=== PATIENT | male | born 1960 | race Caucasian/White ===

== ENCOUNTER 2019-08-01 23:36 | Observation (INO) | payer MEDICARE, MEDICAID ==
[~2019-08-01] VITALS: Ht 167.6 cm; Wt 75.0 kg
[2019-08-01] MEDS ORDERED: pantoprazole 40 MG vial IV ONE (23:45)
[2019-08-01] MEDS ORDERED: normal saline 1000ML IV soln IVB ONE ×2 (23:45→23:55)
[2019-08-01] MEDS ORDERED: tamsulosin 0.4mg capsule PO SCH (23:55)
[2019-08-01] MEDS ORDERED: morphine 4 MG/ML inj SYRINge IV ONE (23:55)
[2019-08-01] MEDS ORDERED: LORazepam 2 mg/ml vial IV ONE (23:55)
[2019-08-02 00:18] LABS: BASOPHILS # (AUTO) 0.1 X10'3 (0-0.2); BASOPHILS % (AUTO) 0.6 % (0-1); EOSINOPHILS % (AUTO) 0.1 % (0-6); HEMATOCRIT 44.2 % (42.0-52.0); HEMOGLOBIN 14.7 g/dl (14.0-17.9); LYMPHOCYTES # (AUTO) 0.7 X10'3 (1.1-4.8); LYMPHOCYTES % (AUTO) 4.7 % (21-51); MEAN CORPUSCULAR HEMOGLOBIN 30.4 PG (27.0-31.0); MEAN CORPUSCULAR HGB CONC 33.3 g/dL (33.0-36.5); MEAN CORPUSCULAR VOLUME 91.2 FL (78-98); MEAN PLATELET VOLUME 7.2 FL (7.4-10.4); MONOCYTES # (AUTO) 0.9 X10'3 (0-0.9); MONOCYTES % (AUTO) 6.2 % (2-12); NEUTROPHILS # (AUTO) 13.5 X10'3 (1.8-7.7); NEUTROPHILS % (AUTO) 88.4 % (42-75); PLATELET COUNT 372 X10'3 (140-440); RED BLOOD COUNT 4.85 X10'6 (4.70-6.10); RED CELL DISTRIBUTION WIDTH 13.7 % (11.5-14.5); WHITE BLOOD COUNT 15.2 X10'3 (4.5-11.0)
[2019-08-02] MEDS: morphine 2 MG/ML inj. syringe IV PRN ×5 (00:24→01:51)
[2019-08-02 00:26] LABS: CLARITY,URINE CLEAR (Clear); COLOR,URINE YELLOW (Yellow); GLUCOSE, URINE NEGATIVE (Neg); KETONES,URINE NEGATIVE (Neg); LEUKOCYTE ESTERASE ,URINE NEGATIVE (Neg); NITRITES, URINE NEGATIVE (Neg); OCCULT BLOOD,URINE TRACE-INTACT (Neg); PROTEIN,URINE NEGATIVE (Neg); UROBILINOGEN,URINE 0.2 E.U/dL (0.2-1.0)
--- NOTE | 2019-08-02 00:26 | NUR ---
pts pain 9/10 after first dose of morphine, second dose given
[2019-08-02 00:27] LABS: UA COLLECTION TYPE CLN CATCH MIDSTREAM
[2019-08-02 00:30] LABS: BACTERIA,URINE NONE SEEN /HPF (Neg); RBC,URINE 0-2 /HPF (0-2); SQUAMOUS EPITHELIAL CELL,UR NONE SEEN /LPF (FEW); WBC,URINE NONE SEEN /HPF (0-4)
[2019-08-02 00:32] LABS: ALANINE AMINOTRANSFERASE 16 U/L (12-78); ALBUMIN/GLOBULIN RATIO 1.2 (1.1-1.5); ALKALINE PHOSPHATASE 54 IU/L (46-116); ANION GAP 12 (8-16); ASPARTATE AMINO TRANSFERASE 20 U/L (10-37); BILIRUBIN,TOTAL 0.5 MG/DL (0.1-1.0); BLOOD UREA NITROGEN 12 MG/DL (7-18); BUN/CREATININE RATIO 9.4 (5.4-32.0); CALCIUM 9.2 MG/DL (8.5-10.1); CHLORIDE 103 MMOL/L (99-107); CREATININE 1.28 MG/DL (0.60-1.10); ETHANOL < 0.010 GM/DL (0.0-0.010); GLUCOSE 197 MG/DL (70-104); LIPASE 108 U/L (73-393); POTASSIUM 3.4 MMOL/L (3.5-5.1); SODIUM 139 MMOL/L (135-145); TOTAL CARBON DIOXIDE 24.3 MMOL/L (24-32); TOTAL PROTEIN 7.4 G/DL (6.4-8.2); eGFR 58 ML/MIN
[2019-08-02 00:38] LABS: URINE AMPHETAMINE SCREEN POSITIVE (Neg); URINE BARBITUATE SCREEN NEGATIVE (Neg); URINE BENZODIAZEPINES SCREEN NEGATIVE (Neg); URINE CANNABINOID SCREEN POSITIVE (Neg); URINE COCAINE SCREEN NEGATIVE (Neg); URINE METHADONE SCREEN NEGATIVE (Neg); URINE OPIATE SCREEN NEGATIVE (Neg); URINE PHENCYCLIDINE SCREEN NEGATIVE (Neg)
--- NOTE | 2019-08-02 01:19 | NUR ---
COMFIRMED WITH DR. SHAH THAT THE DOSE FOR PRN MORPHINE IS A MAX OF 10MG, AND THIS IS OK DO GIVE WITH THE SCHEDULED 4MG SINGLE ORDER. WILL CONTINUE TO MONITOR PT
[2019-08-02] MEDS ORDERED: iohexol 300mg/ml 100ml inj. ONE ×2 (01:47→02:04)
--- NOTE | 2019-08-02 02:15 | NUR ---
PT RETURNED FROM CT. PAIN LEVEL IS 7/10 CURRENTLY. ED MD BHATIA MADE AWARE OF PAIN LEVEL AND REQUESTED ANOTHER PAIN MED; WILL WRITE MED ORDER.
[2019-08-02] MEDS ORDERED: HYDROmorphone 1 mg/ml syringe IV ONE (03:00)
[2019-08-02] MEDS ORDERED: NO HOME MEDS (03:10)
[2019-08-02] MEDS ORDERED: normal saline 1000ml 1,000 ML IV SCH (03:52)
--- NOTE | 2019-08-02 03:52 | NUR ---
INFORMED ED MD EMERSON THAT PT'S PAIN WAS STILL 10/10. SHE INFORMED RN THAT PT WAS NOW UNDER DR. ORDOÑEZ'S CARE AND WOULD BE WRITING ORDERS. WILL INFORM DR. ORDOÑEZ OF PAIN LEVEL.
[2019-08-02] MEDS ORDERED: mag hydrox/Alum hydrox/simeth 30ml oral suspension PO PRN (03:55)
[2019-08-02] MEDS ORDERED: potassium CL 10mEq/100ml bag 100 ML IV PRN ×2 (03:55)
[2019-08-02] MEDS ORDERED: ondansetron/PF 4mg/2ml inj IV PRN (03:55)
[2019-08-02] MEDS ORDERED: potassium Cl 20 mEq SR tablet PO PRN ×2 (03:55)
[2019-08-02] MEDS ORDERED: magnesium Cl slow-release 64mg tablet PO PRN (03:55)
[2019-08-02] MEDS ORDERED: magnesium 4gm in 100ml NS 100 ML IV PRN (03:55)
[2019-08-02] MEDS ORDERED: magnesium 2GM in 50ml NS 50 ML IV PRN (03:55)
[2019-08-02] MEDS ORDERED: magnesium hydroxide 30ml (MOM) UD suspension PO PRN (03:55)
[2019-08-02] MEDS ORDERED: acetaminophen 325mg tablet PO PRN (03:55)
[2019-08-02] MEDS ORDERED: LORazepam 2 mg/ml vial IV PRN (03:55)
[2019-08-02] MEDS ORDERED: bisacodyl 10mg suppository rectal RC PRN (03:55)
[2019-08-02] MEDS ORDERED: fentaNYL/PF 50MCG/1 ML 2ML syringe IV ONE (04:00)
[2019-08-02] MEDS: HYDROmorphone 1 mg/ml syringe IV PRN ×2 (05:06→09:13)
[2019-08-02 05:17] LABS: URINE AMPHETAMINE SCREEN POSITIVE (Neg); URINE BARBITUATE SCREEN NEGATIVE (Neg); URINE BENZODIAZEPINES SCREEN NEGATIVE (Neg); URINE CANNABINOID SCREEN POSITIVE (Neg); URINE COCAINE SCREEN NEGATIVE (Neg); URINE METHADONE SCREEN NEGATIVE (Neg); URINE OPIATE SCREEN POSITIVE (Neg); URINE PHENCYCLIDINE SCREEN NEGATIVE (Neg)
--- NOTE | 2019-08-02 05:53 | NUR ---
CURRENT PAIN 6/10; VITALS STABLE; WILL CONTINUE TO MONITOR
[2019-08-02 07:31] VITALS: BP 150/86
--- NOTE | 2019-08-02 07:45 | NUR ---
PAGER ID: [phone] MESSAGE: Minda OrnelasA: patient just arrived from ER. last dose of pain relief 1mg dilaudid at 5am. still in very severe pain. ER didn't get his pain down past an 10/07. [phone] mike
[2019-08-02] MEDS ORDERED: docusate sod 100mg capsule PO SCH (08:00)
[2019-08-02] MEDS ORDERED: K and/or MAG REPLACEMENT MC SCH (08:00)
[2019-08-02 12:00] VITALS: BP 167/104
--- NOTE | 2019-08-02 13:00 | NUR ---
Patient unable to Dart due to pain. Left AMA before Dart was completed.
--- NOTE | 2019-08-02 13:27 | NUR ---
Patient left AMA. All belongings taken from room. IV removed.
--- NOTE | 2019-08-02 13:31 | NUR ---
PAGER ID: [phone] MESSAGE: Minda OrnelasA : TORIE... patient left AMA. thanks! mike
== END 2019-08-02 13:26 | disposition left against medical advice (07) ==
LOC: ER 23:38 → ED HOLD 08-02 03:52 → UNDOADMOB 08-02 04:29 → ED HOLD 08-02 08:47 → SUR 3N 08-02 08:47 → UNDODISOB 08-02 13:26
PROVIDERS: ADMIT Family Medicine; ATTEND Family Medicine
DX: R10.12 Left upper quadrant pain (principal); N17.9 Acute kidney failure, unspecified; N32.89 Other specified disorders of bladder; E27.8 Other specified disorders of adrenal gland; F11.90 Opioid use, unspecified, uncomplicated; Z87.442 Personal history of urinary calculi
CPT/HCPCS: 36415; 71045; 74177; 80053; 80305; 80320; 81001; 83605; 83690; 85025; 85610; 96374; 96375; 96376; 99285; C9113; G0378; J1170; J2060; J2270; J3010; J7030; Q9967

== ENCOUNTER 2024-12-17 13:58 | Outpatient (CLI) | payer MEDICARE ==
[~2024-12-17 13:58] MED LIST: NO HOME MEDS
--- NOTE | 2024-12-17 14:48 | RADIOLOGY REPORT ---
Procedure: CT CT CHEST LOW DOSE Reason for study/Clinical History: NICOTINE DEPENDENCE, CIGARETTES, IN REMISSION Comparison Study: None Exam Date: 12/17/2024 02:13 PM TECHNIQUE: Multidetector CT of the chest was performed from the lung apices to the upper abdomen without the use of intravenous contract. Axial, coronal and sagittal multiplanar reformats were performed. Radiation Dose Information: CT Dose: CTDI volume is 25 mGy. Dose-length product is 250 mGy*cm The dose indicators for CT are the volume Computed Tomography (CT) Dose Index (CTDIvol) and the Dose Length Product (DLP), and are measured in units of mGy and mGy-cm, respectively. These indicators are not patient dose, but values generated from the CT scanner acquisition factors. The report includes radiation exposure data for exposures received during this examination. FINDINGS: Lower neck: Normal thyroid. Lungs: No focal consolidation, pleural effusion or pneumothorax. Heart/Vascular Structures: Normal heart size. No pericardial effusion. Lymph Nodes: No adenopathy Pleura: No pleural effusion or significant pneumothorax. Musculoskeletal: No acute osseous abnormality. Soft tissues: Normal. Upper abdomen: Limited portions of the upper abdomen are unremarkable. IMPRESSION: No acute intrathoracic abnormality. COPD/emphysema. Lung-RADS category 1. Follow-up in 1 year. Radiation optimization: All CT scans at this facility use at least one of these dose optimization techniques: automated exposure control mA and/or kV adjustment per patient size (includes targeted exams where dose is matched to clinical indication) or iterative reconstruction.
== END 2024-12-17 23:59 | disposition home or self-care (01) ==
LOC: RAD 13:58
PROVIDERS: ATTEND Student in an Organized Health Care Education/Training Program
DX: Z12.2 Encounter for screening for malignant neoplasm of respiratory organs (principal); F17.211 Nicotine dependence, cigarettes, in remission
CPT/HCPCS: 71271